=== PATIENT | female | born 1980 | race African-American/Black ===

== ENCOUNTER 2016-10-30 18:30 | Emergency (ER) | payer OTHER ==
[2016-10-30] MEDS ORDERED: diphenhydrAMINE INJ 50MG/ML VIAL (J1200) As Ordered ONE (19:35)
[2016-10-30] MEDS ORDERED: METOCLOPRAMIDE INJ 10MG/2ML VIAL (J2765) As Ordered ONE (19:35)
[2016-10-30] MEDS ORDERED: dexameTHASONE 4 MG/ML 1ML VIAL (J1100) As Ordered ONE (19:36)
--- NOTE | 2016-10-30 21:00 | REPUSA ---
CT of the head Clinical history: Headache. Technique: Multiple axial CT images were obtained through the head without administration of contrast . Findings: The ventricles and sulci are symmetric bilaterally. There is no evidence of acute hemorrhag e or infarct. There is no midline shift, mass effect, or extra-axial fluid collection. The osseous st ructures are unremarkable. The visualized paranasal sinuses and mastoid air cells are clear. Impression: Negative study.
--- NOTE | 2016-10-30 21:16 | EDDOCDS ---
Physician Documentation [facility] Name: Letty Chou Age: 36 yrs Sex: Female : 1980 Arrival Date: 10/30/2016 Time: 18:30 Bed I5 / M5 Private MD: Gisela Jennings ANP- Disposition: 10/30/16 21:10 Discharged to Home/Self Care. Impression: Headache, Pain in left shoulder. - Condition is Stable. - Discharge Instructions: General Headache Without Cause, Shoulder Pain. - Prescriptions for Ibuprofen 600 mg Oral Tablet - take 1 tablet by ORAL route every 6 hours As needed take with food; 30 tablet. - Medication Reconciliation, Local Pharmacy Hours form. - Follow up: Gisela Jennings; When: 1 - 2 days; Reason: Recheck today's complaints, Continuance of care. - Problem is new. - Symptoms have improved. - Notes: FOLLOW UP WITH YOUR DOCTOR IN 1-2 DAYS, USE MOTRIN FOR SHOULDER PAIN, RETURN TO THE ER IF THE SYMPTOMS WORSEN OR BECOME CONCERNING Historical: - Allergies: no known allergies; - Home Meds: 1. addarall 30mg daily 2. Probiotic oral Unknown oral daily 3. Albuterol Inhl Unknown - PMHx: Asthma; ADD; Sciatica; - PSHx: Breast Reduction; - Social history: Smoking status: Patient uses tobacco products, light tobacco smoker. No barriers to communication noted, The patient speaks fluent Slovak. - Family history: Not pertinent. - : The pt / caregiver states he / she is not on anticoagulants. Home medication list is obtained from the patient. - Exposure Risk Screening:: None identified. 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 9 in. (175.26 cm) (R); Pain 4/10; 21:10 BP 138 / 70; Pulse 88; Resp 18; Temp 98.5(O); Pulse Ox 97% on R/A; Pain 0/10; jmb 18:32 Body Mass Index 32.49 (99.79 kg, 175.26 cm) gr2 MDM: 19:30 IV Saline Lock ordered. ck7 19:30 Metoclopramide 10 mg IV at 40 mg/hr once over 15 mins ordered. ck7 19:30 diphenhydrAMINE 25 mg IVP once ordered. ck7 19:30 Dexamethasone 8 mg IV at bolus once ordered. ck7 19:30 NS 0.9% 1000 ml IV at bolus once ordered. ck7 19:30 CT Head Without Contrast Ordered. EDMS 19:34 Shoulder, Complete Ordered. EDMS Administered Medications: 19:52 Drug: NS 0.9% 1000 ml [sodium chloride 0.9 % injection solution] Route: IV; Rate: jf3 bolus; Site: right antecubital; 19:57 Drug: diphenhydrAMINE 25 mg [diphenhydramine 50 mg/mL injection solution (0.5 mL)] jf3 Route: IVP; Site: right antecubital; 20:00 Drug: Dexamethasone 8 mg [dexamethasone 4 mg/mL injection solution] Route: IV; Rate: jf3 bolus; Site: right antecubital; 20:45 Follow up: Response: Pain is decreased jf3 20:04 Drug: Metoclopramide 10 mg [metoclopramide 5 mg/mL injection solution] Route: IV; Rate: jf3 40 mg/hr; Infused Over: 15 mins; Site: right antecubital; 20:45 Follow up: Response: Pain is decreased jf3 Signatures: Dispatcher [employer] EDDeena Lopez RN RN dls Kwaczala, Christopher, MAREN-C RPA-Cck7 Moises Rodriguez RN RN jmb Farman, Justin, RN RN jf3 MTDD
--- NOTE | 2016-10-30 21:16 | EDDOCDS ---
Nurse's Notes [facility] Name: Letty Chou Age: 36 yrs Sex: Female : 1980 Arrival Date: 10/30/2016 Time: 18:30 Bed I5 / M5 Private MD: Gisela Jennings ANP- Diagnosis: Headache;Pain in left shoulder Presentation: 10/30 18:37 Presenting complaint: Patient states: Presents with sinus headache onset yesterday had dls shooting pain behind right eye continues today also has left shoulder pain x 2 days denies injury. The last date and time the patient was known to be well was was at 15:00 on October 29, 2016. Adult Sepsis Screening: The patient does not have new or worsening altered mentation. Patient's respiratory rate is less than 22. Systolic blood pressure is greater than 100. Patient has a qSOFA score of 0- Negative Sepsis Screen. Suicide/Homicide risk assessment- the patient denies having any suicidal and/or homicidal ideations and does not present with any other emotional, behavioral or mental health complaints. Status: The patient is a dependent. Transition of care: patient was not received from another setting of care. 18:37 Acuity: PAUL Level 3 dls 18:37 Method Of Arrival: Walkin/Carried/Asstd dls Triage Assessment: 18:42 The onset of the patients symptoms was more than three hours ago. General: Appears in dls no apparent distress, well developed, well nourished, well groomed, Behavior is cooperative. Pain: Pain currently is 5 out of 10 on a pain scale. HIV screening NA for this visit Offered previously. 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 addarall 30mg daily 2. Probiotic oral Unknown oral daily 3. Albuterol Inhl Unknown - PMHx: Asthma; ADD; Sciatica; - PSHx: Breast Reduction; - Social history: Smoking status: Patient uses tobacco products, light tobacco smoker. No barriers to communication noted, The patient speaks fluent Filipino. - Family history: Not pertinent. - : The pt / caregiver states he / she is not on anticoagulants. Home medication list is obtained from the patient. - Exposure Risk Screening:: None identified. Screenin:05 Screening information is obtained from the patient. Fall risk: No risks identified. jf3 Assistance ADL's: requires no assistance with activities of daily living. Abuse/DV Screen: The patient / caregiver reports he/she is: not in a situation that causes fear, pain or injury. Nutritional screening: No deficits noted. Advance Directives: There is no active DNR order. home support is adequate. Assessment: 20:05 General: Appears in no apparent distress, comfortable, Behavior is cooperative. Pain: jf3 Location: head Pain currently is 5 out of 10 on a pain scale. Neurological: Level of Consciousness is awake, alert, Oriented to person, place, time, Legal Manager are equal bilaterally Moves all extremities. Speech is normal, Facial symmetry appears normal, Pupils are PERRLA, Tingling in left arm. Cardiovascular: Capillary refill < 3 seconds Heart tones S1 S2 present Chest pain is denied. Respiratory: Airway is patent Respiratory effort is even, unlabored, Respiratory pattern is regular, symmetrical, Breath sounds are clear bilaterally. Denies shortness of breath. Derm: Skin is normal. 20:45 General: Appears in no apparent distress, comfortable, Behavior is cooperative, pt jf3 states pain has reduced to almost nothing. Pt tired and resting at this time. Respirations easy and unlabored. Will continue to monitor. 21:10 General: Patient instructed on discharge instructions. Patient asked if there were any b questions regarding discharge, patient stated no. IV discontinued per hospital policy. Patient signed discharge instructions. Patient discharged in stable condition. . Vital Signs: 18:32 BP 142 / 77; Pulse 92; Resp 18 S; Temp 98.3(O); Pulse Ox 96% on R/A; Weight 99.79 kg gr2 (R); Height 5 ft. 9 in. (175.26 cm) (R); Pain 4/10; 21:10 BP 138 / 70; Pulse 88; Resp 18; Temp 98.5(O); Pulse Ox 97% on R/A; Pain 0/10; jmb 18:32 Body Mass Index 32.49 (99.79 kg, 175.26 cm) gr2 Vitals: 18:32 Log In Time: October 30, 2016 at 18:32. gr2 ED Course: 18:32 Patient visited by Adleine De Guzman. gr2 18:32 Gisela Jennings is Private Physician. gr2 18:32 Patient moved to Waiting gr2 18:34 Patient visited by Adeline De Guzman. gr2 18:34 Patient moved to Pre RCE gr2 18:40 Triage Initiated dls 19:11 Patient moved to Triage 1 ms18 19:16 [facility] ck7 19:16 Santi Myers DO is Attending Physician. ck7 19:25 Patient visited by Marvin Siegel RPA-C. ck7 19:31 Patient moved to I5 / M5 ar3 19:56 Patient visited by Florencio Weinstein PCA. kb5 20:05 The patient / caregiver is instructed regarding the plan of care and ED course. jf3 20:05 Inserted saline lock: 20 gauge in right antecubital area The patient tolerated the jf3 procedure well. No procedures done that require assistance. 20:10 Patient visited by Monster Henson RN. jf3 20:41 Patient visited by Marvin Siegel RPA-C. ck7 20:46 Patient visited by Monster Henson RN. jf3 21:09 Gisela Jennings is Referral Physician. ck7 21:10 Discontinued lock intact, bleeding controlled, pressure dressing applied, No jmb redness/swelling at site. Administered Medications: 19:52 Drug: NS 0.9% 1000 ml [sodium chloride 0.9 % injection solution] Route: IV; Rate: jf3 bolus; Site: right antecubital; 19:57 Drug: diphenhydrAMINE 25 mg [diphenhydramine 50 mg/mL injection solution (0.5 mL)] jf3 Route: IVP; Site: right antecubital; 20:00 Drug: Dexamethasone 8 mg [dexamethasone 4 mg/mL injection solution] Route: IV; Rate: jf3 bolus; Site: right antecubital; 20:45 Follow up: Response: Pain is decreased jf3 20:04 Drug: Metoclopramide 10 mg [metoclopramide 5 mg/mL injection solution] Route: IV; Rate: jf3 40 mg/hr; Infused Over: 15 mins; Site: right antecubital; 20:45 Follow up: Response: Pain is decreased jf3 Order Results: There are currently no results for this order. Outcome: 21:10 Discharge ordered by Provider. ck7 21:10 Discharge Assessment: Patient awake, alert and oriented x 3. No cognitive and/or jmb functional deficits noted. Patient verbalized understanding of disposition instructions. Patient awake and alert. obeys commands, Oriented to person, place and time. Patient verbalized understanding of disposition instructions. Patient has no functional deficits. patient administered narcotics - no. The following High Risk Discharge criteria are identified: None. Discharged to home ambulatory. Condition: stable Condition: improved. Discharge instructions given to patient, Instructed on discharge instructions, follow up and referral plans. medication usage, Demonstrated understanding of instructions, medications, Pt was receptive of discharge instructions/ teaching. CT Study completed. Property sent home with patient. 21:15 Patient left the ED. randyb Signatures: Deena Jennings, RN RN Florencio Cruz, EDGER TECHNICIAN EDGER TECHNICIAN kb5 Cathy Rivers, EDGER TECHNICIAN EDGER TECHNICIAN ar3 Marvin Siegel, RPA-C RPA-Cck7 Adeline De Guzman2 Moises Rodriguez RN RN jmb Dahlia Mclcoud RN RN ms18 Monster Henson,RN RN jf3 ITZEL
--- NOTE | 2016-10-31 01:22 | REP ---
Clinical: Deformity and swelling . Technique: Internal rotation, external rotation, and Y view left shoulder . Findings: No acute fracture or dislocation. The acromioclavicular and glenohumeral joints are intact. A small inferior spur along the undersurface of the acromion process is noted. No periarticular calcifications or other degenerative changes are appreciated. Sub acromial space is normal. Surrounding soft tissues are unremarkable. Impression: No fracture or dislocation. Small inferior spur along the undersurface of the acromion process cannot be excluded and may reflect my mild degenerative change. Signed by Gualberto Flood MD 10/31/2016 01:14 A
--- NOTE | 2016-11-01 22:16 | EDDOCDS ---
Physician Documentation [facility] Name: Letty Chou Age: 36 yrs Sex: Female : 1980 Arrival Date: 10/30/2016 Time: 18:30 Bed I5 / M5 Private MD: Gisela Jennings ANP- Disposition: 10/30/16 21:10 Discharged to Home/Self Care. Impression: Headache, Pain in left shoulder. - Condition is Stable. - Discharge Instructions: General Headache Without Cause, Shoulder Pain. - Prescriptions for Ibuprofen 600 mg Oral Tablet - take 1 tablet by ORAL route every 6 hours As needed take with food; 30 tablet. - Medication Reconciliation, Local Pharmacy Hours form. - Follow up: Gisela Jennings; When: 1 - 2 days; Reason: Recheck today's complaints, Continuance of care. - Problem is new. - Symptoms have improved. - Notes: FOLLOW UP WITH YOUR DOCTOR IN 1-2 DAYS, USE MOTRIN FOR SHOULDER PAIN, RETURN TO THE ER IF THE SYMPTOMS WORSEN OR BECOME CONCERNING Historical: - Allergies: no known allergies; - Home Meds: 1. addarall 30mg daily 2. Probiotic oral Unknown oral daily 3. Albuterol Inhl Unknown - PMHx: Asthma; ADD; Sciatica; - PSHx: Breast Reduction; - Social history: Smoking status: Patient uses tobacco products, light tobacco smoker. No barriers to communication noted, The patient speaks fluent Yoruba. - Family history: Not pertinent. - : The pt / caregiver states he / she is not on anticoagulants. Home medication list is obtained from the patient. - Exposure Risk Screening:: None identified. 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 9 in. (175.26 cm) (R); Pain 4/10; 21:10 BP 138 / 70; Pulse 88; Resp 18; Temp 98.5(O); Pulse Ox 97% on R/A; Pain 0/10; jmb 18:32 Body Mass Index 32.49 (99.79 kg, 175.26 cm) gr2 MDM: 19:30 IV Saline Lock ordered. ck7 19:30 Metoclopramide 10 mg IV at 40 mg/hr once over 15 mins ordered. ck7 19:30 diphenhydrAMINE 25 mg IVP once ordered. ck7 19:30 Dexamethasone 8 mg IV at bolus once ordered. ck7 19:30 NS 0.9% 1000 ml IV at bolus once ordered. ck7 19:30 CT Head Without Contrast Ordered. EDMS 19:34 Shoulder, Complete Ordered. EDMS 21:18 Financial registration complete. zo :18 [facility] Payment Agreement was scanned into [employer] and attached to record. zo 10/31 09:18 T-Sheet-- Draft Copy was scanned into [employer] and attached to record. gb 09:18 Radiology Report was scanned into [employer] and attached to record. gb Administered Medications: 10/30 19:52 Drug: NS 0.9% 1000 ml [sodium chloride 0.9 % injection solution] Route: IV; Rate: jf3 bolus; Site: right antecubital; 19:57 Drug: diphenhydrAMINE 25 mg [diphenhydramine 50 mg/mL injection solution (0.5 mL)] jf3 Route: IVP; Site: right antecubital; 20:00 Drug: Dexamethasone 8 mg [dexamethasone 4 mg/mL injection solution] Route: IV; Rate: jf3 bolus; Site: right antecubital; 20:45 Follow up: Response: Pain is decreased jf3 20:04 Drug: Metoclopramide 10 mg [metoclopramide 5 mg/mL injection solution] Route: IV; Rate: jf3 40 mg/hr; Infused Over: 15 mins; Site: right antecubital; 20:45 Follow up: Response: Pain is decreased jf3 Signatures: Dispatcher [employer] EDMS Deena Jennings, RN RN Genet Leon, Reg Reg gb Godfrey Galaviz Christopher, MAREN-C RPA-Cck7 Moises Rodriguez RN RN jmb Farman, Justin, RN RN jf3 The chart was reviewed and I authenticate all verbal orders and agree with the evaluation and treatment provided.Attachments: 21:18 [facility] Payment Agreement zo 10/31 09:18 T-Sheet-- Draft Copy gb Chart Complete MTDD
--- NOTE | 2016-11-01 22:16 | EDDOCDS ---
Physician Documentation [facility] Name: Letty Chou Age: 36 yrs Sex: Female : 1980 Arrival Date: 10/30/2016 Time: 18:30 Bed I5 / M5 Private MD: Gisela Jennings ANP- Disposition: 10/30/16 21:10 Discharged to Home/Self Care. Impression: Headache, Pain in left shoulder. - Condition is Stable. - Discharge Instructions: General Headache Without Cause, Shoulder Pain. - Prescriptions for Ibuprofen 600 mg Oral Tablet - take 1 tablet by ORAL route every 6 hours As needed take with food; 30 tablet. - Medication Reconciliation, Local Pharmacy Hours form. - Follow up: Gisela Jennings; When: 1 - 2 days; Reason: Recheck today's complaints, Continuance of care. - Problem is new. - Symptoms have improved. - Notes: FOLLOW UP WITH YOUR DOCTOR IN 1-2 DAYS, USE MOTRIN FOR SHOULDER PAIN, RETURN TO THE ER IF THE SYMPTOMS WORSEN OR BECOME CONCERNING Historical: - Allergies: no known allergies; - Home Meds: 1. addarall 30mg daily 2. Probiotic oral Unknown oral daily 3. Albuterol Inhl Unknown - PMHx: Asthma; ADD; Sciatica; - PSHx: Breast Reduction; - Social history: Smoking status: Patient uses tobacco products, light tobacco smoker. No barriers to communication noted, The patient speaks fluent German. - Family history: Not pertinent. - : The pt / caregiver states he / she is not on anticoagulants. Home medication list is obtained from the patient. - Exposure Risk Screening:: None identified. 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 9 in. (175.26 cm) (R); Pain 4/10; 21:10 BP 138 / 70; Pulse 88; Resp 18; Temp 98.5(O); Pulse Ox 97% on R/A; Pain 0/10; jmb 18:32 Body Mass Index 32.49 (99.79 kg, 175.26 cm) gr2 MDM: 19:30 IV Saline Lock ordered. ck7 19:30 Metoclopramide 10 mg IV at 40 mg/hr once over 15 mins ordered. ck7 19:30 diphenhydrAMINE 25 mg IVP once ordered. ck7 19:30 Dexamethasone 8 mg IV at bolus once ordered. ck7 19:30 NS 0.9% 1000 ml IV at bolus once ordered. ck7 19:30 CT Head Without Contrast Ordered. EDMS 19:34 Shoulder, Complete Ordered. EDMS 21:18 Financial registration complete. zo :18 [facility] Payment Agreement was scanned into [employer] and attached to record. zo 10/31 09:18 T-Sheet-- Draft Copy was scanned into [employer] and attached to record. gb 09:18 Radiology Report was scanned into [employer] and attached to record. gb Administered Medications: 10/30 19:52 Drug: NS 0.9% 1000 ml [sodium chloride 0.9 % injection solution] Route: IV; Rate: jf3 bolus; Site: right antecubital; 19:57 Drug: diphenhydrAMINE 25 mg [diphenhydramine 50 mg/mL injection solution (0.5 mL)] jf3 Route: IVP; Site: right antecubital; 20:00 Drug: Dexamethasone 8 mg [dexamethasone 4 mg/mL injection solution] Route: IV; Rate: jf3 bolus; Site: right antecubital; 20:45 Follow up: Response: Pain is decreased jf3 20:04 Drug: Metoclopramide 10 mg [metoclopramide 5 mg/mL injection solution] Route: IV; Rate: jf3 40 mg/hr; Infused Over: 15 mins; Site: right antecubital; 20:45 Follow up: Response: Pain is decreased jf3 Signatures: Dispatcher [employer] EDMS Deena Jennings, RN RN Genet Leon, Reg Reg gb Godfrey Galaviz Christopher, MAREN-C RPA-Cck7 Moises Rodriguez RN RN jmb Farman, Justin, RN RN jf3 The chart was reviewed and I authenticate all verbal orders and agree with the evaluation and treatment provided.Attachments: 21:18 [facility] Payment Agreement zo 10/31 09:18 T-Sheet-- Draft Copy gb Chart Complete MTDD
--- NOTE | 2016-11-01 22:16 | EDDOCDS ---
Nurse's Notes [facility] Name: Letty Chou Age: 36 yrs Sex: Female : 1980 Arrival Date: 10/30/2016 Time: 18:30 Bed I5 / M5 Private MD: Gisela Jennings ANP- Diagnosis: Headache;Pain in left shoulder Presentation: 10/30 18:37 Presenting complaint: Patient states: Presents with sinus headache onset yesterday had dls shooting pain behind right eye continues today also has left shoulder pain x 2 days denies injury. The last date and time the patient was known to be well was was at 15:00 on October 29, 2016. Adult Sepsis Screening: The patient does not have new or worsening altered mentation. Patient's respiratory rate is less than 22. Systolic blood pressure is greater than 100. Patient has a qSOFA score of 0- Negative Sepsis Screen. Suicide/Homicide risk assessment- the patient denies having any suicidal and/or homicidal ideations and does not present with any other emotional, behavioral or mental health complaints. Status: The patient is a dependent. Transition of care: patient was not received from another setting of care. 18:37 Acuity: PAUL Level 3 dls 18:37 Method Of Arrival: Walkin/Carried/Asstd dls Triage Assessment: 18:42 The onset of the patients symptoms was more than three hours ago. General: Appears in dls no apparent distress, well developed, well nourished, well groomed, Behavior is cooperative. Pain: Pain currently is 5 out of 10 on a pain scale. 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 addarall 30mg daily 2. Probiotic oral Unknown oral daily 3. Albuterol Inhl Unknown - PMHx: Asthma; ADD; Sciatica; - PSHx: Breast Reduction; - Social history: Smoking status: Patient uses tobacco products, light tobacco smoker. No barriers to communication noted, The patient speaks fluent Palauan. - Family history: Not pertinent. - : The pt / caregiver states he / she is not on anticoagulants. Home medication list is obtained from the patient. - Exposure Risk Screening:: None identified. Screenin:05 Screening information is obtained from the patient. Fall risk: No risks identified. jf3 Assistance ADL's: requires no assistance with activities of daily living. Abuse/DV Screen: The patient / caregiver reports he/she is: not in a situation that causes fear, pain or injury. Nutritional screening: No deficits noted. Advance Directives: There is no active DNR order. home support is adequate. Assessment: 20:05 General: Appears in no apparent distress, comfortable, Behavior is cooperative. Pain: jf3 Location: head Pain currently is 5 out of 10 on a pain scale. Neurological: Level of Consciousness is awake, alert, Oriented to person, place, time, Coil Winder Hand are equal bilaterally Moves all extremities. Speech is normal, Facial symmetry appears normal, Pupils are PERRLA, Tingling in left arm. Cardiovascular: Capillary refill < 3 seconds Heart tones S1 S2 present Chest pain is denied. Respiratory: Airway is patent Respiratory effort is even, unlabored, Respiratory pattern is regular, symmetrical, Breath sounds are clear bilaterally. Denies shortness of breath. Derm: Skin is normal. 20:45 General: Appears in no apparent distress, comfortable, Behavior is cooperative, pt jf3 states pain has reduced to almost nothing. Pt tired and resting at this time. Respirations easy and unlabored. Will continue to monitor. 21:10 General: Patient instructed on discharge instructions. Patient asked if there were any b questions regarding discharge, patient stated no. IV discontinued per hospital policy. Patient signed discharge instructions. Patient discharged in stable condition. . Vital Signs: 18:32 BP 142 / 77; Pulse 92; Resp 18 S; Temp 98.3(O); Pulse Ox 96% on R/A; Weight 99.79 kg gr2 (R); Height 5 ft. 9 in. (175.26 cm) (R); Pain 4/10; 21:10 BP 138 / 70; Pulse 88; Resp 18; Temp 98.5(O); Pulse Ox 97% on R/A; Pain 0/10; jmb 18:32 Body Mass Index 32.49 (99.79 kg, 175.26 cm) gr2 Vitals: 18:32 Log In Time: October 30, 2016 at 18:32. gr2 ED Course: 18:32 Patient visited by Adeline De Guzman. gr2 18:32 Gisela Jennings is Private Physician. gr2 18:32 Patient moved to Waiting gr2 18:34 Patient visited by Adeline De Guzman. gr2 18:34 Patient moved to Pre RCE gr2 18:40 Triage Initiated dls 19:11 Patient moved to Triage 1 ms18 19:16 Marvin Siegel RPA-C is PHCP. ck7 19:16 Santi Myers DO is Attending Physician. ck7 19:25 Patient visited by Marvin Siegel RPA-C. ck7 19:31 Patient moved to I5 / M5 ar3 19:56 Patient visited by Florencio Weinstein PCA. kb5 20:05 The patient / caregiver is instructed regarding the plan of care and ED course. jf3 20:05 Inserted saline lock: 20 gauge in right antecubital area The patient tolerated the jf3 procedure well. No procedures done that require assistance. 20:10 Patient visited by Monster Henson RN. jf3 20:41 Patient visited by Marvin Siegel RPA-C. ck7 20:46 Patient visited by Monster Hesnon RN. jf3 21:09 Gisela Jennings is Referral Physician. ck7 21:10 Discontinued lock intact, bleeding controlled, pressure dressing applied, No jmb redness/swelling at site. 21:18 [facility] [place] Agreement was scanned into [email or web address] and attached to record. zo 21:41 CT Head Without Contrast Returned. EDMS 10/31 01:57 Shoulder, Complete Returned. EDMS 09:18 T-Sheet-- Draft Copy was scanned into [email or web address] and attached to record. gb 09:18 Radiology Report was scanned into [email or web address] and attached to record. gb Administered Medications: 10/30 19:52 Drug: NS 0.9% 1000 ml [sodium chloride 0.9 % injection solution] Route: IV; Rate: jf3 bolus; Site: right antecubital; 19:57 Drug: diphenhydrAMINE 25 mg [diphenhydramine 50 mg/mL injection solution (0.5 mL)] jf3 Route: IVP; Site: right antecubital; 20:00 Drug: Dexamethasone 8 mg [dexamethasone 4 mg/mL injection solution] Route: IV; Rate: jf3 bolus; Site: right antecubital; 20:45 Follow up: Response: Pain is decreased jf3 20:04 Drug: Metoclopramide 10 mg [metoclopramide 5 mg/mL injection solution] Route: IV; Rate: jf3 40 mg/hr; Infused Over: 15 mins; Site: right antecubital; 20:45 Follow up: Response: Pain is decreased jf3 Order Results: Radiology Order: CT Head Without Contrast Test: CT Head Without Contrast REASON FOR EXAMINATION: HEADACHE; ; CT of the head; Clinical history: Headache.; Technique: Multiple axial CT images were obtained through the head without administration of contrast; .; Findings: The ventricles and sulci are symmetric bilaterally. There is no evidence of acute hemorrhag; e or infarct. There is no midline shift, mass effect, or extra-axial fluid collection. The osseous st; ructures are unremarkable. The visualized paranasal sinuses and mastoid air cells are clear.; Impression: Negative study.; ; Radiology Order: Shoulder, Complete Test: Shoulder, Complete REASON FOR EXAMINATION: Deformity/Swelling; Clinical: Deformity and swelling .; ; Technique: Internal rotation, external rotation, and Y view left shoulder .; ; Findings:; No acute fracture or dislocation. The acromioclavicular and glenohumeral joints; are intact. A small inferior spur along the undersurface of the acromion process; is noted. No periarticular calcifications or other degenerative changes are; appreciated. Sub acromial space is normal. Surrounding soft tissues are; unremarkable.; ; Impression:; No fracture or dislocation.; Small inferior spur along the undersurface of the acromion process cannot be; excluded and may reflect my mild degenerative change.; ; ; Signed by; Gualberto Flood MD 10/31/2016 01:14 A; Outcome: 21:10 Discharge ordered by Provider. ck7 21:10 Discharge Assessment: Patient awake, alert and oriented x 3. No cognitive and/or jmb functional deficits noted. Patient verbalized understanding of disposition instructions. Patient awake and alert. obeys commands, Oriented to person, place and time. Patient verbalized understanding of disposition instructions. Patient has no functional deficits. patient administered narcotics - no. The following High Risk Discharge criteria are identified: None. Discharged to home ambulatory. Condition: stable Condition: improved. Discharge instructions given to patient, Instructed on discharge instructions, follow up and referral plans. medication usage, Demonstrated understanding of instructions, medications, Pt was receptive of discharge instructions/ teaching. CT Study completed. Property sent home with patient. 21:15 Patient left the ED. yash Signatures: Dispatcher [employer] EDMS Deena Jennings, RN RN dls Genet Cooley, Reg Reg gb Guillaume, Godfrey zo Florencio Weinstein, ARMATURE WINDER ARMATURE WINDER kb5 Cathy Rivers, ARMATURE WINDER ARMATURE WINDER ar3 Marvin Siegel, RPA-C [id number] Adeline De Guzman2 Moises RodriguezRN RN Dahlia Galvan RN RN [id number] Monster Henson,RN RN jf3 Chart Complete MTDD
== END 2016-10-30 21:15 | disposition home or self-care (01) ==
LOC: M ED 18:30
DX: R51 Headache (principal); M25.512 Pain in left shoulder; J45.909 Unspecified asthma, uncomplicated; F90.0 Attention-deficit hyperactivity disorder, predominantly inattentive type; Z72.0 Tobacco use; Z92.240 Personal history of inhaled steroid therapy; Z79.899 Other long term (current) drug therapy
CPT/HCPCS: 70450; 73030; 96374; 96375; 99284; J1100; J1200; J2765

== ENCOUNTER → 2016-12-26 | Outpatient (CLI) | payer OTHER ==
--- NOTE | 2016-12-26 15:08 | REP ---
RIGHT HAND SERIES, COMPLETE: 12/26/2016. CLINICAL HISTORY. Right thumb pain. Symptoms for more than a month. FINDINGS: Four views are provided. 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 The carpal bones and their joint spaces are intact. The metacarpals, MCP joints, phalanges and IP joints are grossly intact. There is no visible or displaced fracture, avulsion, subluxation, or erosion evident. IMPRESSION: 1. No definite fracture, avulsion, erosion, subluxation or other acute bony finding. An ulna minus variant is noted. Signed by Reinier Garnica MD 12/26/2016 05:09 P
== END ==
LOC: M LRY 14:19
PROVIDERS: ATTEND Physician Assistant
DX: M79.644 Pain in right finger(s) (principal)
CPT/HCPCS: 73130; G0463